=== PATIENT | male | born 1995 | race African-American/Black ===

== ENCOUNTER 2017-07-05 13:58 | Emergency (ER) | payer MEDICAID ==
[~2017-07-05] VITALS: Ht 144.8 cm; Wt 63.5 kg
[2017-07-05 14:30] VITALS: BP 99/57
[2017-07-05] MEDS ORDERED: SEROQUEL 25 MG25 M1 PO (14:30)
[2017-07-05] MEDS ORDERED: ZYRTEC10 M4 PO (14:30)
[2017-07-05] MEDS ORDERED: LOXAPINE5 MG PO (14:30)
[2017-07-05] MEDS ORDERED: PREDNISONE 10 M10 M1 PO (14:39)
[2017-07-05] MEDS ORDERED: AUGMENTIN 875-1 EACH PO (14:39)
[2017-07-05] MEDS ORDERED: IBUPROFEN 800800 MG PO (14:39)
== END 2017-07-05 14:46 | disposition home or self-care (01) ==
LOC: M.ERS 13:58
DX: J32.2 Chronic ethmoidal sinusitis (principal); H66.91 Otitis media, unspecified, right ear